=== PATIENT | female | born 1960 | race Two or more races ===

== ENCOUNTER 2019-12-17 13:27 | Day surgery (SDC) | payer MEDICAID ==
[2019-12-17] MEDS ORDERED: HYDROmorphone 1 MG/ML CARPUJECT IVP STA (13:53)
--- NOTE | 2019-12-17 13:59 | ED Physician Documentation ---
History of Present Illness - Stated complaint Stated Complaint: FALL - HIT HEAD AND LEG - Chief complaint Chief Complaint: Ext Problem - History of Present Illness Timing: Prior to arrival, How many hours ago (1) - Additonal information Additional information: 59-year-old Icelandic-speaking female presents to the emergency department with chief complaint of acute right lower leg injury. She was walking on rocks looking for her lost cell phone when she tripped and landed. She struck the left side of her face on the rocks and fell awkwardly on her right leg. She did not lose consciousness though she reported that she saw stars and felt dizzy. pt is unable to bear weight on right leg. allows limited exam of right leg secondary to pain. no neuro focal deficits Review of Systems Constitutional: denies: Fever, Chills Cardiac: denies: Chest pain / pressure, Palpitations Respiratory: denies: Dyspnea, Cough GI: denies: Abdominal Pain Musculoskeletal: reports: Extremity pain, Joint pain, Extremity swelling, Joint swelling Neurologic: denies: Generalized weakness, Focal weakness, Difficulty speaking, Near syncope, Syncope, Seizure, Headache, Head injury, LOC PD PAST MEDICAL HISTORY - Allergies Allergies/Adverse Reactions: Allergies Allergy/AdvReac Type Severity Reaction Status Date / Time No Known Drug Allergies Allergy Verified 12/17/19 14:06 PD ED PE NORMAL - General General: Alert and oriented X 3, Other (right leg pain; distressed) - HEENT HEENT: Atraumatic, PERRL, Ears normal, Pharynx benign, Dentition benign, Other (EOMI intact; no orbital tenderness, ecchymosis) - Cardiac Cardiac: RRR, No murmur - Respiratory Respiratory: No respiratory distress - Abdomen Abdomen: Normal bowel sounds, Soft - Back Back: No CVA TTP, No spinal TTP - Derm Derm: Normal color, Warm and dry - Extremities Extremities: Other (Significant swelling and ecchymosis right lateral lower leg just superior to the lateral malleolus. 2+ distal DP pulse. no medial or achilles tenderness. No ROM secondary to pain) - Neuro Neuro: Alert and oriented X 3, tipple tender 2-12 intact, No motor deficit, No sensory deficit Results - Vitals Vitals: Vital Signs - 24 hr 12/17/19 13:33 Temperature 36.5 C Heart Rate 78 Respiratory 18 Rate Blood Pressure 122/36 L O2 Saturation 96 Oxygen O2 Source Room air - Labs Labs: Laboratory Tests 12/17/19 12/17/19 15:07 15:07 WBC 10.9 H RBC 4.23 Hgb 12.6 Hct 37.4 MCV 88.4 MCH 29.8 MCHC 33.7 RDW 12.2 Plt Count 247 MPV 9.1 Neut # (Auto) 9.0 H Lymph # (Auto) 1.4 L Andrew # (Auto) 0.4 Eos # (Auto) 0.0 Baso # (Auto) 0.0 Absolute Nucleated RBC 0.00 Nucleated RBC % 0.0 Sodium 136 Potassium 4.0 Chloride 104 Carbon Dioxide 23 Anion Gap 9.0 BUN 19 Creatinine 0.6 Estimated GFR (MDRD) 103 Glucose 101 H Calcium 9.0 Total Bilirubin 0.8 AST 26 ALT 23 Alkaline Phosphatase 47 Total Protein 6.9 Albumin 4.2 Globulin 2.7 Albumin/Globulin Ratio 1.6 Lipase 40 - Rads (name of study) right ankle Radiology: Final report received (Comminuted fracture of the left posterior calcaneus with proximally displaced fragment likely reflecting retraction of the Achilles tendon) right tib fib Radiology: Final report received (No acute fracture of the right lower leg. Ankle soft tissue swelling noted) PD MEDICAL DECISION MAKING - ED course Complexity details: reviewed results, d/w patient, d/w customer service sales consultant (Dr. Dominguez) ED course: 59-year-old female here with chief complaint of right lower leg pain after fall this afternoon. X-ray reveals a displaced comminuted right calcaneal fracture, with likely associated acihlles tenon rupture. I spoke with Dr. Dominguez on-call orthopedic surgeon who will be in to see her. Pt last ate at 8 am. labs are pending but patient is otherwise healthy and takes no prescribed medications
--- NOTE | 2019-12-17 14:51 | XRAY Report ---
PROCEDURE: Tib/Fib RT INDICATIONS: fall; r/o fx TECHNIQUE: 2 views of the tibia and fibula were acquired. COMPARISON: Right ankle radiograph from the same day FINDINGS: Bones: No fractures or dislocations is seen in tibiotalar fibula. No suspicious bony lesions. Soft tissues: No suspicious soft tissue calcifications or masses. Soft tissue swelling around ankle joint particularly over lateral malleolus is seen. IMPRESSION: No acute right lower leg fracture. Ankle soft tissue swelling. Reviewed by: Eamon Baker MD on 12/17/2019 2:49 PM PDT Approved by: Eamon Baker MD on 12/17/2019 2:49 PM PDT Station ID: [id number]
--- NOTE | 2019-12-17 14:53 | XRAY Report ---
PROCEDURE: Ankle 3 View RT INDICATIONS: fall; r/o fx TECHNIQUE: 3 views of the ankle were acquired. COMPARISON: None. FINDINGS: Bones: There is a comminuted fracture of the posterior calcaneus. There is a fragment posteriorly brittany suring up to 3.4 cm which demonstrates proximal displacement by approximately 4.2 cm. Soft tissues: The Achilles tendon is indistinct in appearance. There is soft tissue swelling posteri or to the calcaneus. IMPRESSION: 1. Comminuted fracture of the posterior calcaneus with a proximally displaced fragment likely reflect ing retraction of the Achilles tendon. Reviewed by: Lorenzo Coyle MD on 12/17/2019 2:52 PM PDT Approved by: Lorenzo Coyle MD on 12/17/2019 2:52 PM PDT Station ID: [id number]
[2019-12-17 15:15] LABS: BASOPHILS % (AUTO) 0.4 %; EOSINOPHILS % (AUTO) 0.1 %; HGB - HEMOGLOBIN 12.6 g/dL (12.0-16.0); LYMPHOCYTES # (AUTO) 1.4 10^3/uL (1.5-3.5); LYMPHOCYTES % (AUTO) 13.2 %; MEAN CORPUSCULAR HEMOGLOBIN 29.8 pg (27.0-31.0); MEAN CORPUSCULAR HGB CONC 33.7 g/dL (32.0-36.0); MEAN CORPUSCULAR VOLUME 88.4 fL (81.0-99.0); MEAN PLATELET VOLUME 9.1 fL (7.9-10.8); MONOCYTES # (AUTO) 0.4 10^3/uL (0.0-1.0); MONOCYTES % (AUTO) 3.9 %; NEUTROPHILS % (AUTO) 82.1 %; PLT - PLATELET COUNT 247 10^3/uL (130-450); RED BLOOD COUNT 4.23 10^6/uL (4.20-5.40); RED CELL DISTRIBUTION WIDTH 12.2 % (12.0-15.0); WHITE BLOOD COUNT 10.9 x10^3/uL (4.8-10.8)
[2019-12-17 15:28] LABS: ALBUMIN 4.2 g/dL (3.2-5.5); ALBUMIN/GLOBULIN RATIO 1.6 (1.0-2.2); BILIRUBIN,TOTAL 0.8 mg/dL (0.2-1.0); CREATININE 0.6 mg/dL (0.4-1.0); TOTAL PROTEIN 6.9 g/dL (6.7-8.2)
--- NOTE | 2019-12-17 15:50 | ANESTHESIA ---
Pre-Anesthesia VS, & Labs - Diagnosis R calcaneal fx - Procedure Screw fixation R calcaneal fx Vital Signs: Temp Pulse Resp BP Pulse Ox 36.5 C 78 18 122/36 L 96 12/17/19 13:33 12/17/19 13:33 12/17/19 13:33 12/17/19 13:33 12/17/19 13:33 Height 5 ft 6 in Weight (kg) 72.575 kg Body Mass Index 25.8 - NPO >8 hours - Is Patient ?: No - Lab Results Current Lab Results: Laboratory Tests 12/17/19 15:07: Sodium 136, Potassium 4.0, Chloride 104, Carbon Dioxide 23, Anion Gap 9.0, BUN 19, Creatinine 0.6, Estimated GFR (MDRD) 103, Glucose 101 H, Calcium 9.0, Total Bilirubin 0.8, AST 26, ALT 23, Alkaline Phosphatase 47, Total Protein 6.9, Albumin 4.2, Globulin 2.7, Albumin/Globulin Ratio 1.6, Lipase 40 12/17/19 15:07: WBC 10.9 H, RBC 4.23, Hgb 12.6, Hct 37.4, MCV 88.4, MCH 29.8, MCHC 33.7, RDW 12.2, Plt Count 247, MPV 9.1, Neut # (Auto) 9.0 H, Lymph # (Auto) 1.4 L, Norton # (Auto) 0.4, Eos # (Auto) 0.0, Baso # (Auto) 0.0, Absolute Nucleated RBC 0.00, Nucleated RBC % 0.0 Lab results reviewed: Yes Fish Bones: 12/17/19 15:07 12/17/19 15:07 Home Medications and Allergies Allergies/Adverse Reactions: Allergies Allergy/AdvReac Type Severity Reaction Status Date / Time No Known Drug Allergies Allergy Verified 12/17/19 14:06 Anes History & Medical History - Anesthetic History Anesthesia Complications: reports: No previous complications Family history of Anesthesia Complications: Denies Family history of Malignant Hyperthermia: Denies - Medical History Cardiovascular: reports: None Pulmonary: reports: None Gastrointestinal: reports: None Urinary: reports: None Neuro: reports: None, Other (R side weakness following cervical fusion. Pt is ambulatory, occasionally uses cane. Biggest deficit is in R UE. Pt requires left hand to stabilize right hand to write.) Musculoskeletal: reports: None Endocrine/Autoimmune: reports: None Blood Disorders: reports: None Skin: reports: None Smoking Status: Never smoker - Surgical History Orthopedic: Other (posterior multi-level cervical fusion) Exam General: Alert, Oriented x3, Cooperative Dental: Dentures full Upper (implants), Dentures full Lower (implants) Mouth Opening: Greater than 4 Fingerbreadths Neck Mobility: Normal Mallampati classification: I Thyromental Distance: greater than 6 cm Respiratory: Lungs clear, Normal breath sounds, No respiratory distress Cardiovascular: Regular rate Extremities: No tenderness/swelling (swelling R LE) Neurological: Normal speech, Other (R UE with sensory and motor deficits. "some days worse than others" per pt) Mental/Cognitive Status: Alert/Oriented X3 Cognitive Status: Within normal limits Plan Anesthesia Type: General, Other (local per MD@surgical site) Consent for Procedure(s) Verified and Reviewed: Yes Code Status: Attempt Resuscitation ASA classification: 2-Mild systemic disease Is this case an emergency?: Yes
--- NOTE | 2019-12-17 17:07 | HISTORY & PHYSICAL EXAMINATION ---
DATE OF SERVICE: 12/17/2019 Physician: Abhishek Dominguez MD CHIEF COMPLAINT: "I hurt my right ankle" (this was spoken to in Ethiopian and translated by her son). HISTORY OF PRESENT ILLNESS: Patient is a 59-year-old woman, who recently moved up from [facility] to be with her son here on [facility], who was in her usual state of health when she appar ently stumbled while walking across a francis surface and injured her right hindfoot. She was unable t o stand or weight bear. She had some pain as a result of this injury. She was taken to the emergenc y room here [facility]. X-rays that were taken showed an avulsion type fracture of her posterior calcaneus near the insertion site of her Achilles tendon. Of note, this patient has had limited mobility affecting primarily her entire right side following a cervical fusion about 5 years ago in [place]. As a result of this, she has a sliding right foot g ait as her baseline gait at this point. Unclear whether, on speaking with the son, just how much othe r disability she has. When asking her, she is unable to jump on this right lower extremity following her neck surgery. PHYSICAL EXAMINATION EXTREMITIES: Shows some mild swelling and no skin abrasions or redness around her hindfoot on the ri t lower extremity. Has tenderness on palpation of the posterior calcaneal region. She is able to move her ankle on command. Sensation appeared to be intact in the foot as well. Good capillary fill ing noted. HEENT: The patient's HEENT exam showed normocephalic, PERRLA. EOMs full. Vision and hearing grossl y intact and symmetrical. NECK: Supple. CHEST: Clear. CARDIOVASCULAR: Regular rate and rhythm. S1 and S2 heard without murmurs, rubs or gallops. ABDOMEN: Soft, nontender, active bowel sounds seen. REVIEW OF SYSTEMS: Noncontributory. PAST MEDICAL HISTORY: The patient apparently has had a history of a cervical fusion in the past and has had residuals affecting her right side of her body, both upper and lower extremities. CURRENT MEDICATIONS: None known. ALLERGIES: NONE KNOWN. X-RAYS: Showed the avulsion fracture of the posterior calcaneus, consistent with avulsion fracture o f the calcaneus. There is some mild comminution in the body of the calcaneus as well with minimal di splacement. ASSESSMENT 1. Closed displaced right avulsion fracture of the right calcaneus - following a fall. 2. Limited right sided of the upper and lower extremities function following a cervical fusion 5 yea rs ago. This has resulted in the patient having a sliding right leg gait normally. Has not been abl e to stand on her tiptoes or jump with her right leg in the last 5 years. PLAN: Discussed at length with the patient and her son, who was translating in Ethiopian, the pros and cons of surgical intervention. They have decided to proceed with surgery. They realize that this m ay or may not actually increase her level of functioning in view of her chronic disability on the rig ht side from her prior cervical fusion. They are aware of this, as well as other possible surgical c omplications such as infection, blood loss, nerve damage, malunion, nonunion, etc. They wished to pr oceed with surgical intervention later this evening. We will plan then on proceeding with open reduc tion, internal fixation of this avulsion fracture in place with the cannulated screws. We will be abl e to do this as an outpatient and later go home following the surgery. Risks and benefits of surgery were explained to the patient, including anesthesia risks, infection, blood loss, nerve damage, consuelo nion, nonunion, hardware failure, skin slough, etc. All their questions were answered. They wished to proceed with surgery as indicated. Consent signed. Leg marked. TD: 12/17/2019 16:20
[2019-12-17] MEDS ORDERED: DEXAMETHASONE 4 MG/ML VIAL IVP ONE (19:28)
[2019-12-17] MEDS ORDERED: PROPOFOL 200 MG/20 ML VIAL IVP ONE (19:28)
[2019-12-17] MEDS ORDERED: MIDAZOLAM 2 MG/2 ML VIAL IVP ONE (19:28)
[2019-12-17] MEDS ORDERED: ONDANSETRON 4 MG/2 ML VIAL IVP ONE (19:28)
[2019-12-17] MEDS ORDERED: fentaNYL 100 MCG/2 ML VIAL IVP ONE (19:28)
[2019-12-17] MEDS ORDERED: LIDOCAINE-MPF 2% 5 ML VIAL IM ONE (19:28)
[2019-12-17] MEDS ORDERED: KETOROLAC 30 MG/ML VIAL IVP ONE (19:28)
[2019-12-17] MEDS ORDERED: BUPIVACAINE 0.25%-EPI 1:200000 PF 30 ML VIAL ONE (21:26)
[2019-12-17] MEDS ORDERED: BUPIVACAINE 0.5% PF 30 ML VIAL ONE (21:26)
--- NOTE | 2019-12-17 21:38 | OPERATIVE REPORT ---
Operative Report - General Procedure Date: 12/17/19 Planned Procedure: Open reduction and cannulated screw fixation of displaced right avulsion fracture of the calcaneus Pre-Op Diagnosis: Closed, distracted avulsion fracture of right calcaneus Procedure Performed: Open reduction and cannulated screw fixation of displaced right calcaneal avulsion fracture Post Op Diagnosis: Same - Procedure Note Primary Surgeon: Columba Dominguez MD Secondary Surgeon: JILLIAN Reis Anesthesia Provider: Tianna Lee CRNA Anesthesia Technique: General LMA IV Fluids (mL): 500 Estimated Blood Loss (mL): 30 Complications: None
[2019-12-17] MEDS ORDERED: HYDROmorphone 0.5 MG/0.5 ML SYRINGE IVP PRN (21:39)
[2019-12-17] MEDS ORDERED: ONDANSETRON 4 MG/2 ML VIAL IVP PRN (21:39)
[2019-12-17] MEDS ORDERED: oxyCODONE 5 MG TABLET PO PRN (21:39)
--- NOTE | 2019-12-17 21:44 | XRAY Report ---
Reason: SURGERY Procedure Date: 12/17/2019 Accession Number: [id number] / [id number] Procedure: FL - OR C-Arm Procedure CPT Code: Final Report FULL RESULT: PROCEDURE: OR C-Arm Procedure INDICATIONS: SURGERY TECHNIQUE: Single intraoperative fluoroscopic image. COMPARISON: 12/17/2019 radiographs. FINDINGS: 2 screws in the calcaneus traversing a fracture seen on 12/17/2019 ankle radiographs. There is nearly anatomic alignment. IMPRESSION: Nearly anatomic alignment of the posterior calcaneus status post ORIF Reviewed by: Jaziel Pantoja MD on 12/17/2019 9:43 PM PDT Approved by: Jaziel Pantoja MD on 12/17/2019 9:43 PM PDT Station ID: [id number]
[2019-12-17] MEDS ORDERED: LACTATED RINGERS 1,000 ML IV ONE (21:47)
[2019-12-17 22:27] VITALS: BP 110/80
--- NOTE | 2020-01-20 07:59 | OPERATIVE REPORT ---
DATE OF SERVICE: 12/17/2019 Physician: Abhishek Dominguez MD please review & remove blanks & this flag before signing Orig. note is in PDOC - review EBL/fluids discrepancy ADDENDUM: The original operative date was 12/17/2019. The information that was dictated earlier is a ll still appropriate. What was missing of course was the procedural note, the description of what wa s done and that is what will follow now. PREOPERATIVE DIAGNOSIS: POSTOPERATIVE DIAGNOSIS: PROCEDURE PERFORMED: SURGEON: Abhishek Dominguez MD RETORT FURNACE HELPER: JILLIAN Yusuf ANESTHESIA PROVIDER/TECHNIQUE: DESCRIPTION OF PROCEDURE PERFORMED: The patient was taken to the operating room on the day of her conklin rgery, where she was placed under a general anesthetic without any complications. She remained posit ioned supine. A thigh pneumatic tourniquet was placed on the right lower extremity but it was not in flated during our procedure. We then prepped and draped the leg free in the usual fashion for our pro cedure. Placing the leg in a [id number] position, we were able to identify the posterior medial aspect of her hindfoot. A longitudinal skin incision was then made about 1 cm anterior to the Achilles tendon, from the inser tion site of the Achilles tendon on the calcaneus and extending proximally approximately 4-5 inches. We then dissected down to the fracture site. There was some mild comminution of the avulsion fractu re of the calcaneus noted. The Achilles tendon itself appeared to be intact. A curette was then use d to remove the fracture hematoma from the calcaneal fracture base. We freed up the Achilles tendon minimally. Plantar flexing the foot, we were able to manipulate the fracture, so it seated nicely in to the calcaneal fracture base. Two threaded-tipped 2.0 guidewires from the 4.0 cannulated screw set were then inserted with power, pinning the avulsion fracture of the calcaneus into its calcaneal frac ture bed. The fluoroscopic views confirmed the good reduction of the avulsion fracture to the calcan eus. We then proceeded to use a direct measuring guide and determined the length of our 4.0 cancello us cannulated screws that would be utilized. We then used the cannulated drill to drill over the benito de pins, perforating through the cortical bone of the calcaneus. We then followed up with the select ed 4.0 cancellous cannulated screws per our original measurements. We obtained good purchase of the screws into the calcaneus. Fluoroscopic views showed again a good reduction of our calcaneal fractur e and satisfactory placement of our hardware. We again irrigated the wounds out thoroughly with sali ne. We then closed the wound in layers using buried simple stitches of 3-0 Vicryl sutures to approximate the subcutaneous tissues. Skin keli were used to approximate the skin edge. We then dressed the wound with Xeroform gauze, 4 x 4's, sterile Webril and a short-leg posterior splint with stirrups was applied with the foot in gravity-equinus positioning. The patient was then awoken from her anesthet ic and taken to the recovery room in satisfactory condition. It should be noted that JILLIAN Henderson was the ssn/ssbn assistant navigator in this case. He was used to help positio n the leg as well as used to provide better exposure of the wound with wound retraction. ESTIMATED BLOOD LOSS: 50 mL. REPLACEMENT: 800 mL of crystalloid fluid. TOURNIQUET TIME: None. INTRAOPERATIVE COMPLICATIONS: None. PLAN: The patient will be maintained in the equinus position for approximately 4-6 weeks before work ing on active range of motion and bringing the foot in more dorsiflexion. The patient will follow up with a postoperative visit in 2 days. TD: 01/19/2020 14:27
== END 2019-12-17 18:00 | disposition home or self-care (01) ==
LOC: ED 13:27 → SDS 17:59
PROVIDERS: ATTEND Orthopaedic Surgery
DX: S92.001A Unspecified fracture of right calcaneus, initial encounter for closed fracture (principal); W01.0XXA Fall on same level from slipping, tripping and stumbling without subsequent striking against object, initial encounter; Y93.01 Activity, walking, marching and hiking; R26.89 Other abnormalities of gait and mobility; Z98.1 Arthrodesis status; Z91.81 History of falling
CPT/HCPCS: 28415; 36415; 73590; 73610; 80053; 83690; 85025; 96374; 99284; 99285; J1170; J7120

== ENCOUNTER 2019-12-30 07:40 | Outpatient (CLI) | payer MEDICAID ==
--- NOTE | 2020-01-01 15:54 | XRAY Report ---
PROCEDURE: Calcaneus RT INDICATIONS: RIGHT CALCANEUS FRACTURE TECHNIQUE: Two views of the calcaneus were acquired. COMPARISON: 12/17/2019 FINDINGS: Bones: Patient is status post prior internal fixation of a displaced posterior calcaneal fracture wit h [address]. Compared to previous intraoperative images, there is increased diastase s at fracture site now measures up to 8 mm in distance suggestive of hardware failure. Soft tissues: No suspicious calcifications. Achilles tendon appears normal. IMPRESSION: Interval increased diastases at patient's known posterior calcaneal fracture site with superiorly dis placed fractured fragment suggestive of fixation hardware failure. Reviewed by: Eamon Baker MD on 12/30/2019 3:52 PM JAKE Approved by: Eamon Baker MD on 12/30/2019 3:52 PM JAKE Station ID: [id number]
== END 2019-12-30 23:59 | disposition home or self-care (01) ==
LOC: DI.WCP 07:40
PROVIDERS: ATTEND Orthopaedic Surgery
DX: S92.001A Unspecified fracture of right calcaneus, initial encounter for closed fracture (principal)

== ENCOUNTER 2020-01-13 13:25 | Outpatient (CLI) | payer MEDICAID ==
[2020-01-13 13:41] LABS: BASOPHILS % (AUTO) 0.3 %; EOSINOPHILS # (AUTO) 0.1 10^3/uL (0.0-0.7); EOSINOPHILS % (AUTO) 0.7 %; HGB - HEMOGLOBIN 11.8 g/dL (12.0-16.0); LYMPHOCYTES # (AUTO) 2.2 10^3/uL (1.5-3.5); LYMPHOCYTES % (AUTO) 31.5 %; MEAN CORPUSCULAR HEMOGLOBIN 29.4 pg (27.0-31.0); MEAN CORPUSCULAR HGB CONC 33.1 g/dL (32.0-36.0); MEAN CORPUSCULAR VOLUME 88.8 fL (81.0-99.0); MEAN PLATELET VOLUME 9.2 fL (7.9-10.8); MONOCYTES # (AUTO) 0.4 10^3/uL (0.0-1.0); MONOCYTES % (AUTO) 6.1 %; NEUTROPHILS # (AUTO) 4.2 10^3/uL (1.5-6.6); NEUTROPHILS % (AUTO) 61.1 %; PLT - PLATELET COUNT 268 10^3/uL (130-450); RED BLOOD COUNT 4.01 10^6/uL (4.20-5.40); RED CELL DISTRIBUTION WIDTH 12.5 % (12.0-15.0); WHITE BLOOD COUNT 6.9 x10^3/uL (4.8-10.8)
== END 2020-01-13 13:26 | disposition home or self-care (01) ==
LOC: LAB 13:25
PROVIDERS: ATTEND Orthopaedic Surgery
DX: Z01.812 Encounter for preprocedural laboratory examination (principal); Z20.828 Contact with and (suspected) exposure to other viral communicable diseases; S92.001A Unspecified fracture of right calcaneus, initial encounter for closed fracture
CPT/HCPCS: 36415; 85025

== ENCOUNTER 2020-01-15 06:23 | Day surgery (SDC) | payer MEDICAID ==
[2020-01-15] MEDS ORDERED: LIDOCAINE-MPF 2% 5 ML VIAL IM ONE (06:24)
[2020-01-15] MEDS ORDERED: PROPOFOL 200 MG/20 ML VIAL IVP ONE (06:24)
[2020-01-15] MEDS ORDERED: ONDANSETRON 4 MG/2 ML VIAL IVP ONE (06:24)
[2020-01-15] MEDS ORDERED: DEXAMETHASONE 4 MG/ML VIAL IVP ONE (06:24)
[2020-01-15] MEDS ORDERED: MIDAZOLAM 2 MG/2 ML VIAL IVP ONE (06:24)
[2020-01-15] MEDS ORDERED: PHENYLEPHRINE 10 MG/ML VIAL IV ONE (06:24)
[2020-01-15] MEDS ORDERED: KETOROLAC 30 MG/ML VIAL IVP ONE (06:24)
[2020-01-15] MEDS ORDERED: LACTATED RINGERS 1,000 ML IV ONE ×3 (06:26→11:09)
[2020-01-15] MEDS ORDERED: CEFAZOLIN SODIUM IN 0.9 % NACL 2 GM/100 ML BAG IV ONE (06:29)
--- NOTE | 2020-01-15 07:05 | ANESTHESIA ---
Pre-Anesthesia VS, & Labs - Diagnosis R calcaneal fx hardware failure - Procedure ORIF R calcaneus, removal old hardware Vital Signs: Temp Pulse Resp BP Pulse Ox 36.3 C L 68 20 107/48 L 99 01/15/20 06:27 01/15/20 06:27 01/15/20 06:27 01/15/20 06:27 01/15/20 06:27 Height 5 ft 6 in Weight (kg) 67.7 kg Body Mass Index 25.8 - NPO >8 hours - Is Patient ?: No - Lab Results Lab results reviewed: Yes Home Medications and Allergies Home Medications: Ambulatory Orders Acetaminophen [Tylenol] 650 mg PO Q6H PRN 01/13/20 Acetaminophen [Tylenol] 650 mg PO Q6H PRN 01/13/20 Allergies/Adverse Reactions: Allergies Allergy/AdvReac Type Severity Reaction Status Date / Time oxycodone Allergy blisters Verified 01/13/20 14:24 Anes History & Medical History - Anesthetic History Anesthesia Complications: reports: No previous complications, Muscle weakness (R sided weakness following cervical fusion) Family history of Anesthesia Complications: Denies Family history of Malignant Hyperthermia: Denies - Medical History Cardiovascular: reports: None Pulmonary: reports: None Gastrointestinal: reports: None Urinary: reports: None Neuro: reports: None, Other (R side weakness following cervical fusion. Pt is ambulatory, occasionally uses cane. Biggest deficit is in R UE. Pt requires left hand to stabilize right hand to write.) Musculoskeletal: reports: None Endocrine/Autoimmune: reports: None Blood Disorders: reports: None Skin: reports: None Smoking Status: Never smoker - Surgical History Orthopedic: Spine surgery, Other Exam General: Alert, Oriented x3, Cooperative Dental: Dentures full Upper, Dentures full Lower Mouth Openin Fingerbreadth Neck Mobility: Normal Mallampati classification: I Thyromental Distance: greater than 6 cm Respiratory: Lungs clear, Normal breath sounds, No respiratory distress Cardiovascular: Regular rate Neurological: Normal speech Mental/Cognitive Status: Alert/Oriented X3, Normal for patient Cognitive Status: Within normal limits Plan Anesthesia Type: General (local per MD) Consent for Procedure(s) Verified and Reviewed: Yes Code Status: Attempt Resuscitation ASA classification: 2-Mild systemic disease Is this case an emergency?: No
[2020-01-15] MEDS ORDERED: HYDROmorphone 0.5 MG/0.5 ML SYRINGE IVP PRN (07:24)
[2020-01-15] MEDS ORDERED: METOCLOPRAMIDE 10 MG/2 ML VIAL IVP PRN (07:24)
[2020-01-15] MEDS ORDERED: MORPHINE 2 MG/ML CARPUJECT IVP PRN (07:24)
[2020-01-15] MEDS ORDERED: ONDANSETRON 4 MG/2 ML VIAL IVP PRN ×2 (07:24→11:16)
[2020-01-15] MEDS ORDERED: fentaNYL 100 MCG/2 ML VIAL IVP PRN (07:24)
[2020-01-15] MEDS ORDERED: ATROPINE ABBOJECT 1 MG/10 ML SYRINGE IVP PRN (07:24)
[2020-01-15] MEDS ORDERED: ePHEDrine 50 MG/ML VIAL IVP PRN (07:24)
[2020-01-15] MEDS ORDERED: NALOXONE 0.4 MG/ML VIAL IVP PRN (07:24)
[2020-01-15] MEDS ORDERED: BUPIVACAINE 0.25%-EPI 1:200000 PF 30 ML VIAL ONE (07:29)
[2020-01-15] MEDS ORDERED: BUPIVACAINE 0.25%-EPI 1:200000 PF 10 ML VIAL SUBQ ONE ×3 (07:33)
[2020-01-15] MEDS ORDERED: LACTATED RINGERS 1,000 ML IV SCH (08:00)
[2020-01-15] MEDS ORDERED: HYDROcod/ACETAM 5/325 MG TABLET PO PRN (11:16)
--- NOTE | 2020-01-15 11:30 | OPERATIVE REPORT ---
Operative Report - General Procedure Date: 01/15/20 Planned Procedure: Open reduction and internal fixation of right calcaneal fracture with Achilles tendon advancement to calcaneus Pre-Op Diagnosis: Avulsion fracture of right calcaneus Procedure Performed: Open reduction and internal fixation of right calcaneus fracture with Achilles tendon advancement to calcaneus Post Op Diagnosis: Same - Procedure Note Primary Surgeon: Columba Dominguez MD Secondary Surgeon: JILLIAN Reis Anesthesia Provider: Omari Al CRNA Anesthesia Technique: General ET tube IV Fluids (mL): 1,000 Estimated Blood Loss (mL): 50 Complications: None
[2020-01-15] MEDS ORDERED: HYDROmorphone 0.5 MG/0.5 ML SYRINGE ONE (11:36)
--- NOTE | 2020-01-15 12:01 | OPERATIVE REPORT ---
DATE OF SERVICE: 01/15/2020 Physician: Abhishek Dominguez MD PREOPERATIVE DIAGNOSIS: Avulsion fracture, right calcaneus. POSTOPERATIVE DIAGNOSIS: Avulsion fracture, right calcaneus. PROCEDURE PERFORMED: Open reduction and internal fixation of avulsion fracture of right calcaneus wi th Achilles tendon advancement to the calcaneus. SURGEON: Abhishek Dominguez MD BRAILLE TYPIST: JILLIAN Yusuf ANESTHESIA: General. DESCRIPTION OF PROCEDURE: The patient was taken to the operating room on the morning of 01/15/2020 w here she was placed under general anesthetic in supine position without any complications. We placed a thigh pneumatic tourniquet to the right leg, but did not inflate it during our procedure. We then prepped and draped the foot and ankle free in the usual fashion. Putting the leg in a [id number] position, we were able to access the medial aspect of her hindfoot and ankle. We then approached t he fracture again through the same posterior medial foot/ankle as before. We then came down onto the avulsed calcaneal fracture, freeing up the Achilles tendon from the postoperative scar tissue that w as forming. We were able to free up the tendon better. We attempted to try to reposition the avulse d fracture back into the calcaneal bed posteriorly. A major fragment we were able to reduce, but the re was enough fragmentation of the fracture at this point, that we ended up excising some of the prox imal portion of the fracture. With the foot in plantar flexion, we then attempted with C-arm guidanc e to reposition the larger avulsion fragment that was still present and bolted this into the calcanea l bed using a 4.0 cancellous cannulated screw. We actually used a screw from the prior procedure. T his was done with the usual technique using a threaded guide tip K-wire to position the fragment and a calcaneal bed and then going ahead and applying the appropriate cannulated screw with washer to fur ther reduce the bony fragments together. Fluoroscopic views postoperatively showed that we had the a vulsion fracture back into the calcaneal bed. At this point, we then used a 0 Ethibond suture and pu t a zigzag Castillo type incision through the distal end of our calcaneal tendon. This was then advan yareli into the calcaneal bony bed from the fracture through a transverse osseous tunnel. We were able to advance to the Achilles tendon down into this bed with the foot in plantar flexion. Suture was th en tied off with a tendon in a good position. Final x-rays were then obtained in the lateral positio n of the calcaneus showing again a good reduction of the retained calcaneal fragment down to the calc aneal bed. We then irrigated the wounds out thoroughly with saline. We then closed the wound in lay ers using buried simple stitches of 2-0 Vicryl to approximate the deep tissues. The deep fascial tis leigh ann layer was approximated and the skin was now nicely opposed. We finished the skin closure using s kin keli. 10 mL of 0.25% Marcaine with epinephrine was then used to provide incisional anesthesia . We then dressed the wound and applied a short leg cast with the foot in gravity equinus. The karen ent was awoken from anesthetic and taken to the recovery room in satisfactory condition. ESTIMATED BLOOD LOSS: 50 mL REPLACEMENT: 1000 mL crystalloid. TOURNIQUET TIME: None. PLAN: The patient will need to be in a gravity equinus type positioning and/or cast for approximatel y 2 months' time. We will gradually start to bring her ankle back up to neutral position and engage in physical therapy to assist with the ankle rehabilitation. TD: 01/15/2020 11:42
[2020-01-15 12:49] VITALS: BP 109/62
--- NOTE | 2020-01-15 12:49 | XRAY Report ---
PROCEDURE: OR C-Arm Procedure INDICATIONS: ORIF TECHNIQUE: Single intraoperative spot fluoroscopic image. COMPARISON: None. FINDINGS: Revision of screw fixation of the posterior calcaneus. Reviewed by: Dany Neville MD on 01/15/2020 12:48 PM PDT Approved by: Dany Neville MD on 01/15/2020 12:48 PM PDT Station ID: [id number]
--- NOTE | 2020-01-15 13:50 | ANESTHESIA POST OP EVALUATION ---
Anesthesia Post Eval - Post Anesthesia Eval Vitals: Last Vital Signs Temp 36.2 C L 01/15/20 12:48 Pulse 70 01/15/20 12:48 Resp 18 01/15/20 12:48 BP 109/62 01/15/20 12:48 Pulse Ox 98 01/15/20 12:48 CV Function Including HR & BP: positive: Stable Pain Control: positive: Satisfactory Mental Status: positive: Patient Participates Respiratory Status: Airway Patent Hydration Status: Satisfactory Anesthesia Complications: positive: None
== END 2020-01-15 06:24 | disposition home or self-care (01) ==
LOC: SDS 06:23
PROVIDERS: ATTEND Orthopaedic Surgery
PROC: 0QSL04Z Reposition Right Tarsal with Internal Fixation Device, Open Approach (ICD-10-PCS; principal; 2020-01-15 07:30)
DX: S92.001A Unspecified fracture of right calcaneus, initial encounter for closed fracture (principal)
CPT/HCPCS: 28415; J0690; J1170; J7120

== ENCOUNTER 2020-02-06 16:48 | Outpatient (CLI) | payer MEDICAID ==
--- NOTE | 2020-02-06 16:51 | XRAY Report ---
PROCEDURE: Calcaneus RT INDICATIONS: RIGHT CALCANEUS FRACTURE TECHNIQUE: Two views of the calcaneus were acquired. COMPARISON: 12/30/2019 FINDINGS: Bones: Prior fixation screws have been removed, and axial fixation screw has been placed from posteri or approach across the dorsal aspect of the calcaneus extending into the mid body. No suspicious bon y lesions. Soft tissues: No suspicious calcifications. Achilles tendon appears normal. IMPRESSION: Revision surgery at the posterior calcaneus, normal alignment established. Reviewed by: Jeffery Iglesias MD on 02/06/2020 4:50 PM PDT Approved by: Jeffery Iglesias MD on 02/06/2020 4:50 PM PDT Station ID: [id number]
== END 2020-02-06 23:59 | disposition home or self-care (01) ==
LOC: DI.WCP 16:48
PROVIDERS: ATTEND Orthopaedic Surgery
DX: S92.041 Displaced other fracture of tuberosity of right calcaneus (principal)

== ENCOUNTER → 2020-02-27 | Outpatient (CLI) | payer MEDICAID ==
--- NOTE | 2020-02-27 16:05 | XRAY Report ---
PROCEDURE: Calcaneus RT INDICATIONS: R CALCANEUS PAIN TECHNIQUE: Two views of the calcaneus were acquired. COMPARISON: Calcaneus x-ray 02/06/2020, 12/30/2019, ankle x-ray 12/16/2009 FINDINGS: Bones: Postsurgical changes status post ORIF of a posterior calcaneal fracture redemonstrated. Poste rior fixation screw appears intact and unchanged in alignment. No associated suspicious lucencies. Th ere is a healing fracture of the posterosuperior calcaneus with the fracture lines still visible. Ass ociated small bony fragments are redemonstrated. Soft tissues: Small associated calcified fragments are redemonstrated posterosuperior to the calcaneu s. There is soft tissue thickening of the distal Achilles tendon. IMPRESSION: 1. Healing fracture of the posterior calcaneus status post ORIF. Reviewed by: Lorenzo Coyle MD on 02/27/2020 3:03 PM JAKE Approved by: Lorenzo Coyle MD on 02/27/2020 3:03 PM AKRANDY Station ID: [id number]
== END ==
LOC: DI.WCP 07:46
PROVIDERS: ATTEND Orthopaedic Surgery
DX: S92.041D Displaced other fracture of tuberosity of right calcaneus, subsequent encounter for fracture with routine healing (principal)

== ENCOUNTER 2020-04-23 16:37 | Outpatient (CLI) | payer MEDICAID ==
--- NOTE | 2020-04-23 14:45 | XRAY Report ---
PROCEDURE: Calcaneus RT INDICATIONS: DISPLACED FX OF TUBEROSITY OF CALCANEUS TECHNIQUE: Two views of the calcaneus were acquired. COMPARISON: 02/27/2020 FINDINGS: Bones: Again noted is a fixation screw in posterior calcaneus. There is interval further healing of p osterior calcaneal fracture site. No new fracture or dislocation is seen. No gross hardware loosening or failure.. No suspicious bony lesions. Soft tissues: No suspicious calcifications. Achilles tendon appears normal. IMPRESSION: Interval further healing posterior calcaneal fracture site. No gross hardware complication. No new fr acture or dislocation. Reviewed by: Eamon Baker MD on 04/23/2020 2:43 PM PST Approved by: Eamon Baker MD on 04/23/2020 2:43 PM PST Station ID: [id number]
== END 2020-04-23 23:59 | disposition home or self-care (01) ==
LOC: DI.N 16:37
PROVIDERS: ATTEND Orthopaedic Surgery
DX: S92.041D Displaced other fracture of tuberosity of right calcaneus, subsequent encounter for fracture with routine healing (principal)

== ENCOUNTER 2020-06-09 08:00 | Outpatient (CLI) | payer MEDICAID ==
[2020-06-09 19:13] LABS: BASOPHILS % (AUTO) 0.5 %; EOSINOPHILS # (AUTO) 0.1 10^3/uL (0.0-0.7); EOSINOPHILS % (AUTO) 1.5 %; HGB - HEMOGLOBIN 12.7 g/dL (12.0-16.0); LYMPHOCYTES # (AUTO) 2.2 10^3/uL (1.5-3.5); LYMPHOCYTES % (AUTO) 33.6 %; MEAN CORPUSCULAR HEMOGLOBIN 28.9 pg (27.0-31.0); MEAN CORPUSCULAR HGB CONC 32.7 g/dL (32.0-36.0); MEAN CORPUSCULAR VOLUME 88.4 fL (81.0-99.0); MEAN PLATELET VOLUME 10.5 fL (7.9-10.8); MONOCYTES # (AUTO) 0.4 10^3/uL (0.0-1.0); MONOCYTES % (AUTO) 5.9 %; NEUTROPHILS # (AUTO) 3.9 10^3/uL (1.5-6.6); NEUTROPHILS % (AUTO) 58.3 %; PLT - PLATELET COUNT 281 10^3/uL (130-450); RED BLOOD COUNT 4.39 10^6/uL (4.20-5.40); RED CELL DISTRIBUTION WIDTH 13.4 % (12.0-15.0); WHITE BLOOD COUNT 6.6 x10^3/uL (4.8-10.8)
[2020-06-09 19:21] LABS: ALBUMIN 4.5 g/dL (3.2-5.5); ALBUMIN/GLOBULIN RATIO 1.7 (1.0-2.2); BILIRUBIN,TOTAL 0.7 mg/dL (0.2-1.0); CALCIUM 9.4 mg/dL (8.5-10.3); CREATININE 0.6 mg/dL (0.4-1.0); CRP - C-REACTIVE PROTEIN 1.5 mg/dL (0-1.0); TOTAL PROTEIN 7.1 g/dL (6.7-8.2)
[2020-06-09 20:10] LABS: RHEUMATOID FACTOR NEGATIVE (Negative)
== END 2020-06-09 23:59 | disposition home or self-care (01) ==
LOC: LAB.WCP 08:00
PROVIDERS: ATTEND Physician Assistant
DX: M25.549 Pain in joints of unspecified hand (principal)
CPT/HCPCS: 36415; 80053; 85025; 85651; 86038; 86140; 86200; 86430

== ENCOUNTER 2020-06-09 14:34 | Outpatient (CLI) | payer MEDICAID ==
--- NOTE | 2020-06-09 15:13 | XRAY Report ---
PROCEDURE: Hand 2 View BILAT INDICATIONS: HAND JOINT PAIN TECHNIQUE: 2 views of each hand(s) acquired. COMPARISON: FINDINGS: Bones: No fractures or dislocations. Periarticular osteophyte formation at the interphalangeal joint s of the digits is present, worst involving the left fifth distal interphalangeal joint. No suspiciou s bony lesions. Soft tissues: No suspicious soft tissue calcifications. IMPRESSION: Osteoarthritis. No acute fracture. No osseous lesion. If symptoms and/or clinical suspicion for patho logy continue, further assessment with repeat plain films, or advanced imaging (e.g., CT, MRI, or bon e scan) is recommended for further assessment. Reviewed by: Marcos Plaza MD on 06/09/2020 3:11 PM PST Approved by: Marcos Plaza MD on 06/09/2020 3:11 PM PST Station ID: [id number]
== END 2020-06-09 14:35 | disposition home or self-care (01) ==
LOC: DI.WCP 14:34
PROVIDERS: ATTEND Physician Assistant
DX: M19.042 Primary osteoarthritis, left hand (principal); M19.041 Primary osteoarthritis, right hand

== ENCOUNTER 2020-06-26 07:15 | Outpatient (CLI) | payer MEDICAID ==
--- NOTE | 2020-06-26 10:42 | XRAY Report ---
PROCEDURE: Calcaneus RT INDICATIONS: DISPLACED OTHER FX OF RIGHT CALCANEUS TECHNIQUE: Two views of the calcaneus were acquired. COMPARISON: 04/23/2020 FINDINGS: Bones: Fixation hardware in posterior calcaneus at distal Achilles tendon insertion is again seen. No evidence of hardware loosening or failure. No acute fracture or dislocation. No suspicious bony lesi ons. Soft tissues: Well-corticated calcifications are again noted in distal Achilles tendon at its inserti on on posterior calcaneus most consistent with soft tissue calcifications secondary to old injury. Th ickened distal Achilles tendon is noted likely represent postsurgical changes versus tendinosis/parti al thickness tear. No full-thickness Achilles tendon rupture. IMPRESSION: Post fixation changes in posterior calcaneus with anatomic calcaneal alignment. No evidence of hardwa re complication. Thickened distal Achilles tendon with well-corticated calcifications suggestive of c alcific tendinitis versus changes secondary to partial-thickness tear. No full-thickness Achilles ten don rupture. Reviewed by: Eamon Baker MD on 06/26/2020 9:41 AM AKST Approved by: Eamon Baker MD on 06/26/2020 9:41 AM AKST Station ID: [id number]
== END 2020-06-26 23:59 | disposition home or self-care (01) ==
LOC: DI.N 07:15
PROVIDERS: ATTEND Physician Assistant
DX: S92.041A Displaced other fracture of tuberosity of right calcaneus, initial encounter for closed fracture (principal)

== ENCOUNTER 2020-06-29 10:02 | Outpatient (CLI) | payer MEDICAID ==
--- NOTE | 2020-06-29 13:14 | XRAY Report ---
PROCEDURE: Shoulder 3 View RT INDICATIONS: R SHOULDER PX TECHNIQUE: 4 views of the shoulder were acquired. COMPARISON: None. FINDINGS: Bones: No fractures or dislocations. No suspicious bony lesions. Visualized ribs appear intact. M oderate periarticular osteophyte formation at the acromioclavicular joint. Mild periarticular osteoph yte formation at the glenohumeral joint. Soft tissues: No suspicious soft tissue calcifications. IMPRESSION: Osteoarthritis. No acute fracture. No osseous lesion. If symptoms and/or clinical suspic ion for pathology continue, further assessment with repeat plain films, or advanced imaging (e.g., CT , MRI, or bone scan) is recommended for further assessment. Reviewed by: Marcos Plaza MD on 06/29/2020 1:13 PM [facility] Approved by: Marcos Plaza MD on 06/29/2020 1:13 PM [facility] Station ID: [id number]
== END 2020-06-29 23:59 | disposition home or self-care (01) ==
LOC: DI.N 10:02
PROVIDERS: ATTEND Physician Assistant
DX: M19.011 Primary osteoarthritis, right shoulder (principal)

== ENCOUNTER 2020-09-15 08:00 | Outpatient (CLI) | payer MEDICAID ==
[2020-09-15 11:39] LABS: BASOPHILS % (AUTO) 0.6 %; EOSINOPHILS # (AUTO) 0.1 10^3/uL (0.0-0.7); EOSINOPHILS % (AUTO) 1.6 %; HCT - HEMATOCRIT 38.8 % (37.0-47.0); HGB - HEMOGLOBIN 12.6 g/dL (12.0-16.0); LYMPHOCYTES # (AUTO) 1.7 10^3/uL (1.5-3.5); LYMPHOCYTES % (AUTO) 32.8 %; MEAN CORPUSCULAR HEMOGLOBIN 29.2 pg (27.0-31.0); MEAN CORPUSCULAR HGB CONC 32.5 g/dL (32.0-36.0); MONOCYTES # (AUTO) 0.4 10^3/uL (0.0-1.0); MONOCYTES % (AUTO) 7.5 %; NEUTROPHILS # (AUTO) 2.9 10^3/uL (1.5-6.6); NEUTROPHILS % (AUTO) 57.3 %; PLT - PLATELET COUNT 291 10^3/uL (130-450); RED BLOOD COUNT 4.31 10^6/uL (4.20-5.40); RED CELL DISTRIBUTION WIDTH 12.7 % (12.0-15.0); WHITE BLOOD COUNT 5.1 x10^3/uL (4.8-10.8)
[2020-09-15 11:46] LABS: ALBUMIN 4.1 g/dL (3.2-5.5); ALBUMIN/GLOBULIN RATIO 1.3 (1.0-2.2); BILIRUBIN,TOTAL 0.7 mg/dL (0.2-1.0); CALCIUM 9.2 mg/dL (8.5-10.3); CREATININE 0.5 mg/dL (0.4-1.0); POTASSIUM 4.2 mmol/L (3.5-5.0); TOTAL PROTEIN 7.2 g/dL (6.7-8.2)
== END 2020-09-15 23:59 | disposition home or self-care (01) ==
LOC: LAB.N 08:00
PROVIDERS: ATTEND Family Medicine
DX: R30.0 Dysuria (principal); R10.32 Left lower quadrant pain
CPT/HCPCS: 36415; 80053; 85025; 87086

== ENCOUNTER 2020-09-16 08:01 | Outpatient (CLI) | payer MEDICAID ==
[2020-09-16] MEDS ORDERED: IOPAMIDOL-300 50 ML VIAL ONE (08:03)
[2020-09-16] MEDS ORDERED: IOPAMIDOL-300 100 ML VIAL ONE (08:03)
--- NOTE | 2020-09-16 09:51 | CT Report ---
PROCEDURE: Abdomen/Pelvis W INDICATIONS: DYSURIA, LLQ ABD PAIN CONTRAST: IV CONTRAST: Isovue 300 ml: 100 PO CONTRAST: Isovue 300 ml50 TECHNIQUE: After the administration of IV and oral contrast, 5 mm thick sections acquired from the diaphragms to the symphysis. 5 mm thick coronal and sagittal reformats were acquired. For radiation dose reducti on, the following was used: automated exposure control, adjustment of mA and/or kV according to karen ent size. COMPARISON: None. FINDINGS: Image quality: Excellent. ABDOMEN: Lung bases: Subpleural calcified granuloma within the left posterior lung base. Lung bases are other lyon clear. Heart size is normal. Solid organs: Liver and spleen are normal in size and enhancement. Gallbladder is within normal garcia its Biliary system is non dilated. Pancreas enhances normally. No adrenal nodules. Kidneys demons trate normal size and enhancement, without hydronephrosis. Peritoneum and bowel: Bowel loops demonstrate normal wall thickness and caliber. Normal appendix. No free fluid or air. Nodes and vessels: No retroperitoneal or mesenteric adenopathy by size criteria. Aorta and inferior vena cava are normal in size. Miscellaneous: No ventral hernias. PELVIS: Genitourinary: Bladder wall thickness is normal. Miscellaneous: No inguinal hernias or adenopathy. Bones: No suspicious bony lesions. No vertebral body compression fractures. IMPRESSION: 1. No acute process. 2. Normal appendix. Reviewed by: Marcos Plaza MD on 09/16/2020 9:49 AM PDT Approved by: Marcos Plaza MD on 09/16/2020 9:49 AM PDT Station ID: [id number]
[2020-09-16] MEDS ORDERED: IOPAMIDOL-300 100 ML VIAL IVP ONE (10:33)
[2020-09-16] MEDS ORDERED: IOPAMIDOL-300 50 ML VIAL PO ONE (10:33)
== END 2020-09-16 08:02 | disposition home or self-care (01) ==
LOC: DI 08:01
PROVIDERS: ATTEND Family Medicine
DX: R30.0 Dysuria (principal); R10.32 Left lower quadrant pain
CPT/HCPCS: 74177; Q9967